=== PATIENT | female | born 1960 | race Caucasian/White ===

== ENCOUNTER → 2016-07-25 | Outpatient (CLI) | payer OTHER ==
[2016-07-25 08:15] LABS: Basophils # (A) 0.1 k/uL (0-0.2); Basophils % (A) 1 %; CH 29.1; CHCM 32.3; Eosinophils # (A) 0.1 k/uL (0-0.7); Eosinophils % (A) 1 %; HCT 44.6 % (34.0-46.0); HDW 2.26; HGB 14.1 gm/dL (11.4-16.0); Luc # (Auto) 0.21; Luc % (Auto) 2; Lymphocytes % (A) 29 %; MCH 28.5 pg (25.0-35.0); MCHC 31.5 g/dL (31.0-37.0); MCV 90.3 fL (80.0-100.0); Mean Platelet Volume 6.5; Monocytes # (A) 0.5 k/uL (0-1.0); Monocytes % (A) 5 %; Neutrophils # (A) 6.7 k/uL (1.3-7.7); Neutrophils % (A) 63 %; RBC 4.94 m/uL (3.80-5.40); RDW 12.9 % (11.5-15.5); WBC 10.6 k/uL (3.8-10.6); WBC (Perox) 10.87
[2016-07-25 09:09] LABS: ALT 35 U/L (9-52); AST 25 U/L (14-36); Alkaline Phosphatase 80 U/L (38-126); Anion Gap 10 mmol/L; Blood Urea Nitrogen 16 mg/dL (7-17); C Reactive Protein 7.5 mg/L (<10.0); Calcium 9.5 mg/dL (8.4-10.2); Carbon Dioxide 29 mmol/L (22-30); Chloride 105 mmol/L (98-107); Cholesterol 169 mg/dL (<200); Creatine Kinase 74 U/L (30-135); Glucose 113 mg/dL (74-99); HDL Cholesterol 61 mg/dL (40-60); Non-African American GFR(MDRD) >60 (>60 ml/min/1.73 sqM); Potassium 4.3 mmol/L (3.5-5.1); Sodium 144 mmol/L (137-145); Total Bilirubin 0.9 mg/dL (0.2-1.3); Total Protein 7.1 g/dL (6.3-8.2); Triglycerides 137 mg/dL (<150)
[2016-07-25 09:37] LABS: Erythrocyte Sedimentation Rate 20 mm/hr (0-20)
== END | disposition home or self-care (01) ==
LOC: LABWHC1 07:30
PROVIDERS: ATTEND Internal Medicine
DX: J44.9 Chronic obstructive pulmonary disease, unspecified (principal); N18.3 Chronic kidney disease, stage 3 (moderate); E78.5 Hyperlipidemia, unspecified; E55.9 Vitamin D deficiency, unspecified; M54.2 Cervicalgia; G54.2 Cervical root disorders, not elsewhere classified
CPT/HCPCS: 36415; 80053; 80061; 82306; 82550; 85025; 85652; 86140

== ENCOUNTER → 2016-08-25 | Outpatient (CLI) | payer OTHER ==
--- NOTE | 2016-08-26 09:30 | MM ---
Reason for exam: screening (asymptomatic). Last mammogram was performed 1 year and 4 months ago. History: Patient is postmenopausal. Family history of breast cancer in aunt. Physical Findings: A clinical breast exam by your physician is recommended on an annual basis and results should be correlated with mammographic findings. MG Screening Mammo w CAD Bilateral CC and MLO view(s) were taken. Prior study comparison: May 09, 2015, bilateral MG 3d screening mammo w/cad. February 10, 2014, bilateral MG screening mammo w CAD. Finding: There is an equal density (isodense), irregular mass in the upper quadrant, central position of the right breast. ASSESSMENT: Incomplete: need additional imaging evaluation, BI-RAD 0 RECOMMENDATION: Special view mammogram of the right breast. If lesion persists on supplemental views, image directed ultrasound is recommended. [facility] will attempt to contact patient to return for supplemental views and ultrasound if indicated.
== END | disposition home or self-care (01) ==
LOC: RADMAMWWP 13:19
PROVIDERS: ATTEND Internal Medicine
DX: Z12.31 Encounter for screening mammogram for malignant neoplasm of breast (principal); R92.8 Other abnormal and inconclusive findings on diagnostic imaging of breast

== ENCOUNTER → 2016-08-29 | Outpatient (CLI) | payer OTHER ==
--- NOTE | 2016-09-01 09:37 | MM ---
Reason for exam: additional evaluation requested from abnormal screening. Last mammogram was performed less than 1 month ago. History: Patient is postmenopausal. Family history of breast cancer in aunt. Physical Findings: Nurse did not find any significant physical abnormalities on exam. MG Work Up Mamm w CAD RT MLO with magnification and CC with magnification view(s) were taken of the right breast. Prior study comparison: August 25, 2016, bilateral MG screening mammo w CAD. May 09, 2015, bilateral MG 3d screening mammo w/cad. There are scattered fibroglandular densities. These results were verbally communicated with the patient and result sheet given to the patient on 08/29/16. ASSESSMENT: Probably benign, BI-RAD 3 RECOMMENDATION: Follow-up diagnostic mammogram of the right breast in 6 months.
== END | disposition home or self-care (01) ==
LOC: RADMAMWWP 12:45
PROVIDERS: ATTEND Internal Medicine
DX: R92.8 Other abnormal and inconclusive findings on diagnostic imaging of breast (principal); Z80.3 Family history of malignant neoplasm of breast; Z78.0 Asymptomatic menopausal state

== ENCOUNTER → 2017-02-26 | Outpatient (CLI) | payer OTHER ==
[2017-02-26 15:35] LABS: Basophils % (A) 0 %; CH 29.2; CHCM 32.8; Eosinophils # (A) 0.1 k/uL (0-0.7); Eosinophils % (A) 1 %; HDW 2.17; HGB 13.8 gm/dL (11.4-16.0); Luc # (Auto) 0.11; Luc % (Auto) 1; Lymphocytes % (A) 22 %; MCH 29.4 pg (25.0-35.0); MCHC 32.8 g/dL (31.0-37.0); MCV 89.4 fL (80.0-100.0); Monocytes # (A) 0.5 k/uL (0-1.0); Monocytes % (A) 6 %; Neutrophils # (A) 6.5 k/uL (1.3-7.7); Neutrophils % (A) 70 %; RDW 13.6 % (11.5-15.5); WBC 9.2 k/uL (3.8-10.6); WBC (Perox) 9.55
[2017-02-26 15:51] LABS: Anion Gap 10 mmol/L; Blood Urea Nitrogen 13 mg/dL (7-17); C Reactive Protein 12.2 mg/L (<10.0); Calcium 9.8 mg/dL (8.4-10.2); Carbon Dioxide 27 mmol/L (22-30); Chloride 102 mmol/L (98-107); Creatine Kinase 63 U/L (30-135); Glucose 82 mg/dL (74-99); Magnesium 1.9 mg/dL (1.6-2.3); Non-African American GFR(MDRD) >60 (>60 ml/min/1.73 sqM); Sodium 139 mmol/L (137-145)
[2017-02-26 16:21] LABS: Erythrocyte Sedimentation Rate 20 mm/hr (0-20)
== END | disposition home or self-care (01) ==
LOC: LABWHC1 14:49
PROVIDERS: ATTEND Internal Medicine
DX: E87.8 Other disorders of electrolyte and fluid balance, not elsewhere classified (principal); E03.9 Hypothyroidism, unspecified; M79.7 Fibromyalgia
CPT/HCPCS: 36415; 80048; 82550; 83735; 84443; 85025; 85652; 86140

== ENCOUNTER → 2017-03-03 | Outpatient (CLI) | payer OTHER ==
--- NOTE | 2017-03-03 14:14 | MM ---
Reason for exam: follow-up at short interval from prior study. Last mammogram was performed 6 months ago. History: Patient is postmenopausal. Family history of breast cancer in aunt. Took estrogen for 6 months beginning at age 38. Took progesterone for 6 months beginning at age 38. Physical Findings: Nurse did not find any significant physical abnormalities on exam. MG Diagnostic Mammo RT w CAD CC, MLO, and spot compression MLO view(s) were taken of the right breast. Prior study comparison: August 29, 2016, right breast MG work up mamm w CAD RT. August 25, 2016, bilateral MG screening mammo w CAD. There are scattered fibroglandular densities. No significant new findings when compared with previous films. These results were verbally communicated with the patient and result sheet given to the patient on 03/03/17. ASSESSMENT: Benign, BI-RAD 2 RECOMMENDATION: Return to routine screening mammogram schedule for both breasts. Back on schedule.
== END | disposition home or self-care (01) ==
LOC: RADMAMWWP 13:29
PROVIDERS: ATTEND Internal Medicine
DX: R92.8 Other abnormal and inconclusive findings on diagnostic imaging of breast (principal)

== ENCOUNTER → 2017-06-05 | Outpatient (CLI) | payer OTHER ==
[2017-06-05 17:49] LABS: Anion Gap 12 mmol/L; Blood Urea Nitrogen 16 mg/dL (7-17); Calcium 9.6 mg/dL (8.4-10.2); Carbon Dioxide 28 mmol/L (22-30); Chloride 103 mmol/L (98-107); Glucose 106 mg/dL (74-99); Phosphorus 3.9 mg/dL (2.5-4.5); Potassium 3.8 mmol/L (3.5-5.1); Sodium 143 mmol/L (137-145)
--- NOTE | 2017-06-05 17:55 | XR ---
EXAMINATION TYPE: XR chest 2V DATE OF EXAM: 06/05/2017 COMPARISON: NONE HISTORY: Short of breath TECHNIQUE: Frontal and lateral views of the chest are obtained. FINDINGS: There is no heart failure nor confluent pneumonic infiltrate. Costophrenic angles are yandy r. Bony thorax is intact. There is mild hyperlucency of the right upper lobe. IMPRESSION: No active cardiopulmonary disease. Normal heart. There is probably emphysema.
== END | disposition home or self-care (01) ==
LOC: LABWHC1 17:11
PROVIDERS: ATTEND Internal Medicine
DX: E87.8 Other disorders of electrolyte and fluid balance, not elsewhere classified (principal); K21.9 Gastro-esophageal reflux disease without esophagitis; Z87.891 Personal history of nicotine dependence
CPT/HCPCS: 36415; 71046; 80048; 83735; 84100

== ENCOUNTER → 2017-09-24 | Outpatient (CLI) | payer OTHER ==
[2017-09-24 09:54] LABS: Basophils % (A) 0 %; Eosinophils # (A) 0.1 k/uL (0-0.7); Eosinophils % (A) 2 %; HCT 45.9 % (34.0-46.0); HGB 14.5 gm/dL (11.4-16.0); Lymphocytes # (A) 2.1 k/uL (1.0-4.8); Lymphocytes % (A) 38 %; MCH 26.7 pg (25.0-35.0); MCHC 31.6 g/dL (31.0-37.0); MCV 84.4 fL (80.0-100.0); Mean Platelet Volume 6.9; Monocytes # (A) 0.3 k/uL (0-1.0); Monocytes % (A) 5 %; Neutrophils % (A) 54 %; Platelet Count 279 k/uL (150-450); RBC 5.44 m/uL (3.80-5.40); RDW 13.3 % (11.5-15.5); WBC 5.6 k/uL (3.8-10.6)
[2017-09-24 10:04] LABS: ALT 33 U/L (9-52); AST 27 U/L (14-36); Albumin 4.3 g/dL (3.5-5.0); Alkaline Phosphatase 84 U/L (38-126); Anion Gap 13 mmol/L; Blood Urea Nitrogen 11 mg/dL (7-17); C Reactive Protein 5.4 mg/L (<10.0); Calcium 9.7 mg/dL (8.4-10.2); Carbon Dioxide 30 mmol/L (22-30); Chloride 104 mmol/L (98-107); Cholesterol 179 mg/dL (<200); Creatine Kinase 48 U/L (30-135); Glucose 120 mg/dL (74-99); HDL Cholesterol 51 mg/dL (40-60); LDL Cholesterol,Calculated 65 mg/dL (0-99); Magnesium 2.1 mg/dL (1.6-2.3); Phosphorus 3.7 mg/dL (2.5-4.5); Potassium 3.8 mmol/L (3.5-5.1); Sodium 147 mmol/L (137-145); Total Bilirubin 0.4 mg/dL (0.2-1.3); Total Protein 7.4 g/dL (6.3-8.2); Triglycerides 316 mg/dL (<150)
[2017-09-24 11:14] LABS: Erythrocyte Sedimentation Rate 19 mm/hr (0-20)
[2017-09-24 16:49] LABS: Vitamin D 25 Hydroxy 39.9 ng/mL (30.0-100.0)
[2017-09-24 17:11] LABS: Folate, Serum >24.0 ng/mL
[2017-09-24 18:51] LABS: Hemoglobin A1C 5.8 % (4.0-6.0)
== END | disposition home or self-care (01) ==
LOC: LABWHC1 09:04
PROVIDERS: ATTEND Internal Medicine
DX: K05.00 Acute gingivitis, plaque induced (principal); J44.9 Chronic obstructive pulmonary disease, unspecified; E78.5 Hyperlipidemia, unspecified; I10 Essential (primary) hypertension; E55.9 Vitamin D deficiency, unspecified
CPT/HCPCS: 36415; 80053; 80061; 82306; 82550; 82607; 82746; 83036; 83735; 84100; 84443; 85025; 85652; 86140

== ENCOUNTER 2018-02-19 11:24 | Emergency (ER) | payer OTHER ==
[2018-02-19] MEDS ORDERED: SODIUM CHLORIDE 0.9% 1,000 ML IV STA (13:32)
[2018-02-19] MEDS ORDERED: KETOROLAC 30 MG/ML 1 ML VIAL IVP STA (13:32)
[2018-02-19] MEDS ORDERED: ONDANSETRON 4 MG/2 ML VIAL IVP STA (13:33)
--- NOTE | 2018-02-19 13:35 | ED ---
General Adult HPI - General Chief complaint: Back Pain/Injury Stated complaint: Side Pain Source: patient Mode of arrival: ambulatory Limitations: no limitations - History of Present Illness Initial comments: Dictation was produced using [email or web address] dictation software. please excuse any grammatical, word or spelling errors. Chief Complaint: 57-year-old female past medical history of depression and hypertension presents with right-sided flank pain, nausea and vomiting. History of Present Illness: 57-year-old female presents with flank pain, nausea and vomiting. She states the symptoms have been ongoing for a couple days now. Patient's history is of musculoskeletal back pain. She states this episode is different from what she normally had in the past. Denies any changes in her urine. Patient has been feeling nauseous. She states that the pain as sharp and worse with movement. Denies any constitutional symptoms. The ROS documented in this emergency department record has been reviewed and confirmed by me. Those systems with pertinent positive or negative responses have been documented in the HPI. All other systems are other negative and/or noncontributory. - Related Data Home Medications Medication Instructions Recorded Confirmed Calcium Carbonate/Vitamin D3 1 tab PO BID 11/08/13 02/19/18 [Caltrate 600 + D Tablet] Multivitamins, Thera [Multivitamin] 1 tab PO DAILY 11/08/13 02/19/18 Naproxen Sodium [Aleve] 440 mg PO Q12HR PRN 02/19/18 02/19/18 [place]-3 Fatty Acids/Fish Oil [Fish 1 cap PO HS 02/19/18 02/19/18 Oil 1,000 mg Softgel] amLODIPine [Norvasc] 5 mg PO HS 02/19/18 02/19/18 traZODone HCL [Desyrel] 100 mg PO HS 02/19/18 02/19/18 Previous Rx's Medication Instructions Recorded Cyclobenzaprine [Flexeril] 5 mg PO TID PRN #18 tablet 02/19/18 Allergies Allergy/AdvReac Type Severity Reaction Status Date / Time Sulfa (Sulfonamide Allergy Unknown Verified 02/19/18 15:33 Antibiotics) Review of Systems ROS Statement: Those systems with pertinent positive or pertinent negative responses have been documented in the HPI. ROS Other: All systems not noted in ROS Statement are negative. Past Medical History Past Medical History: No Reported History History of Any Multi-Drug Resistant Organisms: None Reported Past Surgical History: Appendectomy, Hysterectomy Past Psychological History: No Psychological Hx Reported Smoking Status: Current every day smoker Past Alcohol Use History: Rare Past Drug Use History: None Reported General Exam - General Exam Comments Initial Comments: PHYSICAL EXAM: General Impression: Alert and oriented x3, not in acute distress HEENT: Normocephalic atraumatic, extra-ocular movements intact, pupils equal and reactive to light bilaterally, mucous membranes moist. Cardiovascular: Heart regular rate and rhythm, S1&S2 audible, no murmurs, rubs or gallops Chest: Lungs clear to auscultation bilaterally, no rhonchi, no wheeze, no rales Abdomen: Bowel sounds present, abdomen soft, non-tender, non-distended, no organomegaly Musculoskeletal: Pulses present and equal in all extremities, no peripheral edema Motor: Power 5/5 bilaterally, no focal deficits noted Neurological: CN II-XII grossly intact, no focal motor or sensory deficits noted Skin: Intact with no visualized rashes Psych: Normal affect and mood Limitations: no limitations Course Vital Signs 02/19/18 12:12 Temperature 98.4 F Pulse Rate 88 Respiratory 18 Rate Blood Pressure 179/82 O2 Sat by Pulse 96 Oximetry Medical Decision Making - Medical Decision Making ED course: 57-year-old female with chief complaint of right-sided back pain with associated nausea and vomiting. Vital signs upon arrival shows blood pressure 179/82, rest of vital signs within normal limits. Clinical presentation is suspicious for musculoskeletal back pain versus nephrolithiasis.Laboratory evaluation shows leukocytosis of 11.5, rest of CBC unremarkable. Metabolic panel is unremarkable, urinalysis is negative. CT of the abdomen and pelvis was obtained showing no acute processes. There are 1-2 mm calculi in the right kidney midpole. There is no signs of hydronephrosis. Patient's symptoms likely secondary to default lithiasis however not ureterolithiasis. Patient notified of these results. Patient given prescription for Flexeril. - Lab Data Result diagrams: 02/19/18 12:58 02/19/18 12:58 Lab Results 02/19/18 02/19/18 02/19/18 Range/Units 12:58 12:58 14:00 WBC 11.5 H (3.8-10.6) k/uL RBC 4.99 (3.80-5.40) m/uL Hgb 14.0 (11.4-16.0) gm/dL Hct 42.4 (34.0-46.0) % MCV 84.9 (80.0-100.0) fL MCH 28.1 (25.0-35.0) pg MCHC 33.1 (31.0-37.0) g/dL RDW 13.5 (11.5-15.5) % Plt Count 351 (150-450) k/uL Neutrophils % 83 % Lymphocytes % 12 % Monocytes % 4 % Eosinophils % 1 % Basophils % 0 % Neutrophils # 9.5 H (1.3-7.7) k/uL Lymphocytes # 1.3 (1.0-4.8) k/uL Monocytes # 0.5 (0-1.0) k/uL Eosinophils # 0.1 (0-0.7) k/uL Basophils # 0.0 (0-0.2) k/uL Sodium 140 (137-145) mmol/L Potassium 4.1 (3.5-5.1) mmol/L Chloride 103 (98-107) mmol/L Carbon Dioxide 25 (22-30) mmol/L Anion Gap 12 mmol/L BUN 10 (7-17) mg/dL Creatinine 0.63 (0.52-1.04) mg/dL Est GFR (CKD-EPI)AfAm >90 (>60 ml/min/1.73 sqM) Est GFR (CKD-EPI)NonAf >90 (>60 ml/min/1.73 sqM) Glucose 125 H (74-99) mg/dL Calcium 9.8 (8.4-10.2) mg/dL Lipase 75 (23-300) U/L Urine Color Light Yellow Urine Appearance Clear (Clear) Urine pH 7.0 (5.0-8.0) Ur Specific [place] 1.007 (1.001-1.035) Urine Protein Negative (Negative) Urine Glucose (UA) Negative (Negative) Urine Ketones Negative (Negative) Urine Blood Negative (Negative) Urine Nitrite Negative (Negative) Urine Bilirubin Negative (Negative) Urine Urobilinogen <2.0 (<2.0) mg/dL Ur Leukocyte Esterase Negative (Negative) Disposition Clinical Impression: Nephrolithiasis Disposition: HOME SELF-CARE Instructions: Kidney Stones (ED) Prescriptions: Cyclobenzaprine [Flexeril] 5 mg PO TID PRN #18 tablet PRN Reason: Pain Is patient prescribed a controlled substance at d/c from ED?: No Referrals: Ang Raymundo MD [Primary Care Provider] - 1-2 days Time of Disposition: 16:10
[2018-02-19 13:55] LABS: Basophils % (A) 0 %; Eosinophils # (A) 0.1 k/uL (0-0.7); Eosinophils % (A) 1 %; HCT 42.4 % (34.0-46.0); Lymphocytes # (A) 1.3 k/uL (1.0-4.8); Lymphocytes % (A) 12 %; MCH 28.1 pg (25.0-35.0); MCHC 33.1 g/dL (31.0-37.0); MCV 84.9 fL (80.0-100.0); Mean Platelet Volume 7.4; Monocytes # (A) 0.5 k/uL (0-1.0); Monocytes % (A) 4 %; Neutrophils # (A) 9.5 k/uL (1.3-7.7); Neutrophils % (A) 83 %; Platelet Count 351 k/uL (150-450); RBC 4.99 m/uL (3.80-5.40); RDW 13.5 % (11.5-15.5); WBC 11.5 k/uL (3.8-10.6)
[2018-02-19 14:06] LABS: Anion Gap 12 mmol/L; Blood Urea Nitrogen 10 mg/dL (7-17); Calcium 9.8 mg/dL (8.4-10.2); Carbon Dioxide 25 mmol/L (22-30); Chloride 103 mmol/L (98-107); Glucose 125 mg/dL (74-99); Lipase 75 U/L (23-300); Potassium 4.1 mmol/L (3.5-5.1); Sodium 140 mmol/L (137-145)
[2018-02-19 14:42] LABS: Appearance,Urine Clear (Clear); Bilirubin,Urine Negative (Negative); Blood,Urine Negative (Negative); Color,Urine Light Yellow; Glucose,Urine (UA) Negative (Negative); Ketones,Urine Negative (Negative); Leukocyte Esterase,Urine Negative (Negative); Nitrite,Urine Negative (Negative); Protein,Urine Negative (Negative); Specific Gravity,Urine 1.007 (1.001-1.035); Urobilinogen,Urine <2.0 mg/dL (<2.0)
--- NOTE | 2018-02-19 15:28 | CT ---
EXAMINATION TYPE: CT abdomen pelvis wo con DATE OF EXAM: 02/19/2018 HISTORY: pain not further specified. CT DLP: 805 mGycm. Automated Exposure Control for Dose Reduction was Utilized. TECHNIQUE: CT scan of the abdomen and pelvis is performed without oral or IV contrast. COMPARISON: NONE FINDINGS: Within the limitations of a non-contrast study, the following observations are made. LUNG BASES: No significant abnormality is appreciated. LIVER/GB: No significant abnormality is appreciated. PANCREAS: No significant abnormality is seen. SPLEEN: No significant abnormality is seen. ADRENALS: Slight asymmetric thickening to left adrenal gland favors benign hyperplasia. KIDNEYS: There is single 1 to 2 mm calculus upper to mid pole level right kidney coronal image 51. Th ere is no hydronephrosis or obstructing ureter calculi clearly seen bilaterally. No intraluminal calc ulus in bladder is clearly identified. BOWEL: Evaluation bowel is suboptimal secondary to lack of enteric contrast. There is no suspicious s mall or large bowel dilatation. Sutures from appendectomy are seen at base of cecum. A few diverticul a are seen in the sigmoid colon. There is no CT evidence for acute diverticulitis. GENITAL ORGANS: Uterus is surgically absent or markedly atrophic. LYMPH NODES: No greater than 1cm abdominal or pelvic lymph nodes are appreciated. OSSEOUS STRUCTURES: Moderate axial joint space loss in both hips is present. OTHER: There is tiny fat-containing umbilical hernia. There is moderate calcified plaque of aorta ext ending into branch vessels. There is single surgical clip anteriorly in the lower abdomen axial image 83. IMPRESSION: No suspicious acute findings identified on noncontrast study. Suboptimal without more det silvia history.
[2018-02-19 16:36] VITALS: BP 147/65; PULSE 74; RESP 16; TEMP 98
== END 2018-02-19 16:36 | disposition home or self-care (01) ==
LOC: EC 11:24
DX: N20.0 Calculus of kidney (principal); I10 Essential (primary) hypertension; F32.9 Major depressive disorder, single episode, unspecified; F17.200 Nicotine dependence, unspecified, uncomplicated; Z79.899 Other long term (current) drug therapy; Z88.2 Allergy status to sulfonamides; Z90.89 Acquired absence of other organs; Z90.710 Acquired absence of both cervix and uterus
CPT/HCPCS: 36415; 80048; 83690; 85025; 81003; 87086; 74176; 99284; 96374; 96375; 96361; J2405; J1885

== ENCOUNTER → 2018-09-18 | Outpatient (CLI) | payer OTHER ==
[2018-09-18 15:56] LABS: Basophils % (A) 1 %; Eosinophils # (A) 0.1 k/uL (0-0.7); Eosinophils % (A) 2 %; HCT 44.1 % (34.0-46.0); HGB 13.7 gm/dL (11.4-16.0); Lymphocytes # (A) 2.3 k/uL (1.0-4.8); Lymphocytes % (A) 42 %; MCH 27.1 pg (25.0-35.0); MCV 87.4 fL (80.0-100.0); Mean Platelet Volume 6.3; Monocytes # (A) 0.4 k/uL (0-1.0); Monocytes % (A) 6 %; Neutrophils # (A) 2.5 k/uL (1.3-7.7); Neutrophils % (A) 45 %; Platelet Count 328 k/uL (150-450); RBC 5.05 m/uL (3.80-5.40); RDW 13.3 % (11.5-15.5); WBC 5.6 k/uL (3.8-10.6)
[2018-09-18 16:38] LABS: Erythrocyte Sedimentation Rate 19 mm/hr (0-20)
[2018-09-18 22:14] LABS: Albumin 4.3 g/dL (3.80-4.90); Albumin/Globulin Ratio 1.95 (1.60-3.17); Anion Gap 4.4 mmol/L (4.00-12.00); Calcium 9.3 mg/dL (8.7-10.3); Carbon Dioxide 32.6 mmol/L (21.6-31.8); Globulin 2.2 g/dL (1.6-3.3); LDL Cholesterol,Calculated 119.2 mg/dL (0.0-131.0); Potassium 4.6 mmol/L (3.5-5.5); Total Bilirubin 0.6 mg/dL (0.2-1.2); Total Protein 6.5 g/dL (6.2-8.2); VLDL Calculation 24.8 mg/dL (5.00-40.00)
== END ==
LOC: LABMAIN 14:52
PROVIDERS: ATTEND Internal Medicine
DX: E78.5 Hyperlipidemia, unspecified (principal); D64.9 Anemia, unspecified; E87.8 Other disorders of electrolyte and fluid balance, not elsewhere classified; E55.9 Vitamin D deficiency, unspecified
CPT/HCPCS: 36415; 80053; 80061; 82306; 82550; 85025; 85652

== ENCOUNTER 2019-01-18 12:58 | Emergency (ER) | payer OTHER ==
[2019-01-18 13:09] VITALS: BP 176/86; PULSE 81; RESP 18; TEMP 97.7
--- NOTE | 2019-01-18 13:33 | XR ---
Right knee HISTORY: Pain 3 views of the right knee Bone mineralization, joint spaces and alignment are maintained. Suprapatellar increased density is pr esent. No fracture or dislocation. IMPRESSION: Suprapatellar joint effusion.
--- NOTE | 2019-01-18 13:49 | ED ---
Lower Extremity Injury HPI - General Chief Complaint: Extremity Injury, Lower Stated Complaint: Knee injury-[facility] Time Seen by Provider: 01/18/19 13:09 Source: patient Mode of arrival: wheelchair Limitations: no limitations - History of Present Illness Initial Comments: 58-year-old female presented for chief complaint of right knee. Right foot pain. Patient states that this morning at 11:30 AM she tripped while at work. She states she had her anterior knee except her right great toe. Patient states she has pain in these areas. Patient states she is able to ambulate extended the leg. Patient states the pain is anterior denies dislocation denies numbness tingling or loss sensation. Remainder review systems negative. Patient denies any injuries upper extremities had injury loss of consciousness or injury to the neck or back. Patient appears well upon arrival ambulatory. - Related Data Home Medications Medication Instructions Recorded Confirmed Calcium Carbonate/Vitamin D3 1 tab PO BID 11/08/13 02/19/18 [Caltrate 600 + D Tablet] Multivitamins, Thera [Multivitamin] 1 tab PO DAILY 11/08/13 02/19/18 Naproxen Sodium [Aleve] 440 mg PO Q12HR PRN 02/19/18 02/19/18 [place]-3 Fatty Acids/Fish Oil [Fish 1 cap PO HS 02/19/18 02/19/18 Oil 1,000 mg Softgel] amLODIPine [Norvasc] 5 mg PO HS 02/19/18 02/19/18 traZODone HCL [Desyrel] 100 mg PO HS 02/19/18 02/19/18 Previous Rx's Medication Instructions Recorded Cyclobenzaprine [Flexeril] 5 mg PO TID PRN #18 tablet 02/19/18 Allergies Allergy/AdvReac Type Severity Reaction Status Date / Time Sulfa (Sulfonamide Allergy Unknown Verified 01/18/19 13:09 Antibiotics) Review of Systems ROS Statement: Those systems with pertinent positive or pertinent negative responses have been documented in the HPI. ROS Other: All systems not noted in ROS Statement are negative. Past Medical History Past Medical History: No Reported History History of Any Multi-Drug Resistant Organisms: None Reported Past Surgical History: Appendectomy, Hysterectomy Past Psychological History: No Psychological Hx Reported Smoking Status: Former smoker Past Alcohol Use History: Occasional Past Drug Use History: Marijuana General Exam - General Exam Comments Initial Comments: General: The patient is awake and alert, in no distress, and does not appear acutely ill. Eye: +3 mm pupils are equal, round and reactive to light, extra-ocular movements are intact. No nystagmus. There is normal conjunctiva bilaterally. No signs of icterus. Ears, nose, mouth and throat: There are moist mucous membranes and no oral lesions. Nontender to palpation of the cervical spine. Neck: The neck is supple, there is no tenderness or JVD. Cardiovascular: There is a regular rate and rhythm. No murmur, rub or gallop is appreciated. Respiratory: Lungs are clear to auscultation, respirations are non-labored, breath sounds are equal. No wheezes, stridor, rales, or rhonchi. Gastrointestinal: [Soft, non-distended, non-tender abdomen without masses or organomegaly noted. There is no rebound or guarding present. No CVA tenderness. Bowel sounds are unremarkable.] Musculoskeletal: Upon inspection of the bilaterally there is bruising the plantar aspect of the right foot. Patient does not have point localized tenderness over the midfoot however is tender to palpation over the length of th e right great toe. No bruising over the toe. No gross deformity. Patient has no abnormal findings upon inspection of knees bilaterally no bruising abrasions or lacerations. Patient is able to fully extend and flex at the knee without difficulty. However does complain of discomfort at the right knee. Strength 5/5. Sensation intact proximal and distal to injury site. Radial and PD Pulses equal bilaterally 2+. Neurological: A&O x 3. CN II-XII intact grossly, There are no obvious motor or sensory deficits. Coordination appears grossly intact. Speech is normal. Skin: Skin is warm and dry and no rashes or lesions are noted. Psychiatric: Cooperative, appropriate mood & affect, normal judgment. Limitations: no limitations Course Vital Signs 01/18/19 13:06 Temperature 97.7 F Pulse Rate 81 Respiratory 18 Rate Blood Pressure 176/86 O2 Sat by Pulse 97 Oximetry Medical Decision Making - Medical Decision Making 58-year-old female presenting for right foot right knee pain. Patient neurovascularly intact. Extensor mechanism intact. Imaging studies reveal no acute osseous process. Patient does have bruising on the plantar aspect of her foot there is no overt signs of Lisfranc injury on imaging studies. No specific point localized pain in this area however given the bruising patient is placed and a preprinted posterior splint she is given nonweightbearing instructions. Patient states she does not wnat a prescription for crutches and has a walker home which she will utilize to prevent weightbearing. I discussed the importance of orthopedic surgery follow-up. Patient verbalized understanding. Patient is neurovascularly intact both prior to and after applying splint. Discussed the case maintained by Dr. Glavez reviewed imaging studies together. At this time patient still for discharge she verbalizes understanding of return parameters. Disposition Clinical Impression: Right knee pain, Right knee injury, Fall, Traumatic ecchymosis of right knee Disposition: HOME SELF-CARE Condition: Good Instructions (If sedation given, give patient instructions): Knee Sprain (ED) Additional Instructions: Please use medication as discussed. Please follow-up with family doctor in the next 2 days. Please return to emergency room if the symptoms increase or worsen or for any other concerns. Is patient prescribed a controlled substance at d/c from ED?: No Referrals: Ang Raymundo MD [Primary Care Provider] - 1-2 days Time of Disposition: 14:15
[2019-01-18] MEDS ORDERED: ACET/COD 300 MG/30 MG STARTER PACK 6 TAB BTL PO STA (14:15)
== END 2019-01-18 14:34 | disposition home or self-care (01) ==
LOC: EC 12:58
DX: S80.01XA Contusion of right knee, initial encounter (principal); Z79.899 Other long term (current) drug therapy; Z87.891 Personal history of nicotine dependence; Z88.2 Allergy status to sulfonamides; W01.0XXA Fall on same level from slipping, tripping and stumbling without subsequent striking against object, initial encounter; Y92.69 Other specified industrial and construction area as the place of occurrence of the external cause; Y99.0 Civilian activity done for income or pay
CPT/HCPCS: 29515; 99283

== ENCOUNTER → 2019-01-27 | Outpatient (CLI) | payer OTHER ==
--- NOTE | 2019-01-27 15:17 | XR ---
EXAMINATION TYPE: XR knee complete RT DATE OF EXAM: 01/27/2019 CLINICAL HISTORY: Contusion injury with pain. TECHNIQUE: Three views of the right knee are obtained. COMPARISON: None. FINDINGS: There is no acute fracture/dislocation evident in the right knee. Mild tricompartment join t space loss is redemonstrated. Persistent increased soft tissue density suprapatellar bursa suspicio us for moderate to large joint effusion. IMPRESSION: There is no acute fracture or dislocation in the right knee. No significant change from prior.
== END | disposition home or self-care (01) ==
LOC: RADXRMAIN 14:55
PROVIDERS: ATTEND Emergency Medicine
DX: S80.01XD Contusion of right knee, subsequent encounter (principal)

== ENCOUNTER → 2019-02-11 | Outpatient (CLI) | payer OTHER ==
--- NOTE | 2019-02-11 08:12 | MR ---
EXAMINATION TYPE: MR knee RT wo con DATE OF EXAM: 02/11/2019 COMPARISON: Right knee x-ray January 27, 2019 HISTORY: Contusion injury R knee with pain. Outer pain since tripping injury January 18 per patient TECHNIQUE: Multiplanar, multisequence images of the knee is performed without IV contrast. FINDINGS: MEDIAL MENISCUS: Anterior horn is intact without tear. Posterior horn shows horizontal increased sign al does not extend to articular surface. LATERAL MENISCUS: Anterior and posterior horns are intact without tear. CRUCIATE LIGAMENTS: The posterior cruciate ligament is intact and unremarkable. Anterior cruciate lig ament shows marked increased signal in spanning of fibers sagittal image 16 but remains intact COLLATERAL LIGAMENTS: The medial collateral ligament and lateral collateral ligament complex are inta ct and unremarkable. EXTENSOR MECHANISM: Visualized quadriceps and patellar tendons are intact. EFFUSION: There is moderate to large size suprapatellar joint effusion. POPLITEAL CYST: Tiny popliteal/fung cyst. TRICOMPARTMENT SPACES: Mild to moderate narrowing patellofemoral compartment. No significant spurring . Mild narrowing medial tibiofemoral compartment. CARTILAGE: Tricompartmental articular cartilage is fairly well preserved. BONE MARROW SIGNAL: Marked heterogeneous increased T2 signal involving the tibial plateau with focal area of low T1 signal sagittal image 20 and coronal image 11 consistent with nondisplaced intra-artic ular subchondral fracture along the lateral aspect of the tibial plateau. OTHER: No additional significant abnormality is appreciated. IMPRESSION: 1. Nondisplaced occult intra-articular incomplete fracture through the lateral aspect of the tibial p lateau with associated osseous contusion injury. No displaced fracture fragments identified. 2. Moderate to large suprapatellar joint effusion. 3. Partial rupture ACL, no full thickness ACL tear. 4. Probable intrasubstance tear posterior horn medial meniscus. No full-thickness meniscal tear. 5. Mild tricompartment degenerative changes. 6. Tiny popliteal cyst.
== END | disposition home or self-care (01) ==
LOC: RADMRIMAIN 06:36
PROVIDERS: ATTEND Emergency Medicine
DX: S82.144A Nondisplaced bicondylar fracture of right tibia, initial encounter for closed fracture (principal); S83.511A Sprain of anterior cruciate ligament of right knee, initial encounter; M17.11 Unilateral primary osteoarthritis, right knee

== ENCOUNTER → 2020-10-27 | Outpatient (CLI) | payer BC ==
[2020-10-27 11:35] LABS: Basophils # (A) 0.1 k/uL (0-0.2); Basophils % (A) 1 %; Eosinophils # (A) 0.2 k/uL (0-0.7); Eosinophils % (A) 3 %; HCT 42.1 % (34.0-46.0); HGB 13.8 gm/dL (11.4-16.0); Lymphocytes % (A) 31 %; MCH 27.9 pg (25.0-35.0); MCHC 32.9 g/dL (31.0-37.0); MCV 84.9 fL (80.0-100.0); Mean Platelet Volume 6.8; Monocytes # (A) 0.5 k/uL (0-1.0); Monocytes % (A) 7 %; Neutrophils # (A) 3.6 k/uL (1.3-7.7); Neutrophils % (A) 57 %; Platelet Count 388 k/uL (150-450); RBC 4.96 m/uL (3.80-5.40); RDW 13.1 % (11.5-15.5); WBC 6.4 k/uL (3.8-10.6)
[2020-10-27 11:47] LABS: ALT 24 U/L (4-34); AST 29 U/L (14-36); African American GFR (CKD) >90 (>60 ml/min/1.73 sqM); Albumin 4.1 g/dL (3.5-5.0); Alkaline Phosphatase 89 U/L (38-126); Anion Gap 6 mmol/L; Blood Urea Nitrogen 17 mg/dL (7-17); C Reactive Protein 0.9 mg/dL (<1.0); Calcium 9.2 mg/dL (8.4-10.2); Carbon Dioxide 26 mmol/L (22-30); Chloride 106 mmol/L (98-107); Creatine Kinase 116 U/L (30-135); Glucose 96 mg/dL (74-99); Magnesium 2.1 mg/dL (1.6-2.3); Non-African American GFR(CKD) >90 (>60 ml/min/1.73 sqM); Phosphorus 4.4 mg/dL (2.5-4.5); Potassium 5.1 mmol/L (3.5-5.1); Sodium 138 mmol/L (137-145); Total Bilirubin 0.4 mg/dL (0.2-1.3); Total Protein 7.2 g/dL (6.3-8.2)
[2020-10-27 12:50] LABS: Erythrocyte Sedimentation Rate 20 mm/hr (0-20)
[2020-10-27 16:30] LABS: Chol/HDL Ratio 3.05; Cholesterol 192 mg/dL (0-200)
--- NOTE | 2020-10-28 09:47 | XR ---
EXAMINATION TYPE: XR chest 2V DATE OF EXAM: 10/27/2020 COMPARISON: Chest x-ray 06/05/2017 HISTORY: Shortness of breath, physical exam TECHNIQUE: Frontal and lateral views of the chest are obtained. FINDINGS: There is no focal air space opacity, pleural effusion, or pneumothorax seen. The cardiac silhouette size is stable, heart is small. Prominent lung volumes, apical lucency may be indicative of underlying COPD, emphysema, some minimal strand-like basilar densities are again noted The osseous structures are intact. IMPRESSION: No acute cardiopulmonary process.
== END | disposition home or self-care (01) ==
LOC: RADXRMAIN 09:20
PROVIDERS: ATTEND Internal Medicine
DX: R06.02 Shortness of breath (principal)
CPT/HCPCS: 71046; 80053; 80061; 82306; 82550; 83735; 84100; 84443; 85025; 85652; 86140

== ENCOUNTER → 2020-11-29 | Outpatient (CLI) | payer BC | END | disposition home or self-care (01) | CPT/HCPCS: 77067 ==

== ENCOUNTER → 2021-07-18 | Outpatient (CLI) | payer BC ==
--- NOTE | 2021-07-18 13:07 | XR ---
EXAMINATION TYPE: XR Hip Complete RT DATE OF EXAM: 07/18/2021 COMPARISON: NONE HISTORY: Pain TECHNIQUE: 2 views submitted FINDINGS: There is no evidence of erosive change or acute fracture. Mild concentric narrowing of the joint space with hypertrophic change of the acetabulum IMPRESSION: 1. Arthropathy correlate for femoral acetabular impingement.
--- NOTE | 2021-07-18 13:10 | XR ---
EXAM TYPE: LUMBAR SPINE X RAY SERIES COMPARISON: NONE HISTORY: Pain TECHNIQUE: 4 views are submitted. FINDINGS: Alignment is anatomic. The pedicles are intact. The transverse processes are intact. There is no s pondylolysis or spondylolisthesis. Diffuse osteopenia curvature of the spine. Vascular calcifications are noted. There is degenerative disc disease at all levels with advanced facet arthropathy involvin g the lower lumbar spine. No compression deformities. IMPRESSION: 1. Diffuse osteopenia with multilevel degenerative disc disease and advanced facet arthropathy lower lumbar spine.
== END | disposition home or self-care (01) ==
LOC: RADXRMAIN 12:14
PROVIDERS: ATTEND Internal Medicine
DX: M51.36 Other intervertebral disc degeneration, lumbar region (principal); M47.816 Spondylosis without myelopathy or radiculopathy, lumbar region; M12.851 Other specific arthropathies, not elsewhere classified, right hip; M85.88 Other specified disorders of bone density and structure, other site
CPT/HCPCS: 72110; 73502

== ENCOUNTER → 2021-12-28 | Outpatient (CLI) | payer BC ==
[2021-12-28 11:20] LABS: Basophils # (A) 0.05 X 10*3/uL (0.00-0.10); Basophils % (A) 0.8 %; Eosinophils # (A) 0.05 X 10*3/uL (0.04-0.35); Eosinophils % (A) 0.8 %; HCT 42.8 % (37.2-46.3); HGB 12.9 g/dL (12.0-15.0); Immature Grans, Automated 0.3 %; Lymphocytes # (A) 1.82 X 10*3/uL (0.90-5.00); MCH 26.2 pg (27.0-32.0); MCHC 30.1 g/dL (32.0-37.0); MCV 86.8 fL (80.0-97.0); Mean Platelet Volume 9.5 fL (9.5-12.2); Monocytes # (A) 0.54 X 10*3/uL (0.20-1.00); Monocytes % (A) 8.6 %; NRBC Per 100 WBC 0 /100 WBCS (0.0-0.0); Neutrophils % (A) 60.5 %; Platelet Count 319 X 10*3/uL (140-440); RBC 4.93 X 10*6/uL (4.10-5.20); RDW 13.2 % (11.5-14.5); WBC 6.28 X 10*3/uL (4.50-10.00)
[2021-12-28 11:44] LABS: Erythrocyte Sedimentation Rate 9 mm/Hr (0-30)
[2021-12-28 11:46] LABS: Chol/HDL Ratio 2.89 Ratio; VLDL Calculation 15.64 mg/dL (5.00-40.00)
[2021-12-28 11:53] LABS: ALT 19 U/L (8-44); AST 20 U/L (13-35); African American GFR (CKD) 86.6 (60.0-200.0); Albumin 4.4 g/dL (3.8-4.9); Albumin/Globulin Ratio 1.81 (1.60-3.17); Alkaline Phosphatase 85 U/L (41-126); BUN/Creat Ratio 24.67 Ratio (12.00-20.00); Blood Urea Nitrogen 20.8 mg/dL (9.0-27.0); C Reactive Protein <0.30 mg/dL (0.00-0.80); Calcium 9.3 mg/dL (8.7-10.3); Carbon Dioxide 26.5 mmol/L (20.0-27.5); Chloride 102 mmol/L (96-109); Creatine Kinase 77 U/L (26-186); Globulin 2.4 g/dL (1.6-3.3); Glucose 100 mg/dL (70-110); Magnesium 2.3 mg/dL (1.5-2.4); Non-African American GFR(CKD) 74.7 (60.0-200.0); Phosphorus 4.5 mg/dL (2.4-5.1); Potassium 4.4 mmol/L (3.5-5.5); Sodium 141 mmol/L (135-145); Total Protein 6.8 g/dL (6.2-8.2)
== END | disposition home or self-care (01) ==
LOC: LABWHC1 08:15
PROVIDERS: ATTEND Internal Medicine
DX: Z00.00 Encounter for general adult medical examination without abnormal findings (principal); D64.9 Anemia, unspecified; I10 Essential (primary) hypertension; E78.5 Hyperlipidemia, unspecified; E55.9 Vitamin D deficiency, unspecified; E03.9 Hypothyroidism, unspecified
CPT/HCPCS: 36415; 80053; 80061; 82306; 82550; 83735; 84100; 84443; 85025; 85652; 86140

== ENCOUNTER → 2022-01-10 | Outpatient (CLI) | payer BC ==
--- NOTE | 2022-01-13 08:43 | MM ---
Reason for Exam: Screening (asymptomatic). Last mammogram was performed 1 year(s) and 1 month(s) ago. Patient History: Menarche at age 12. First Full-Term at age 25. Left ovary removed at age 38. Right ovary removed at age 38. Hysterectomy at age 38. Postmenopausal. Estrogen for 6 months from age 38 until age 38. Progesterone for 6 months from age 38 until age 38. Patient used Hormonal Contraceptives for 5 years. Maternal aunt had breast cancer. Risk Values: Deborah 5 year model risk: 1.6%. NCI Lifetime model risk: 7.9%. Prior Study Comparison: 08/29/2016 Right Diagnostic Mammogram, [facility]. 03/03/2017 Right Diagnostic Mammogram, [facility]. 11/29/2020 Bilateral Screening Mammogram, [facility]. Tissue Density: There are scattered fibroglandular densities. Findings: Analyzed By CAD. There is no suspicious group of microcalcifications or new suspicious mass in either breast. No significant change from prior exams. Overall Assessment: Benign, BI-RAD 2 Management: Screening Mammogram of both breasts in 1 year. A clinical breast exam by your physician is recommended on an annual basis and results should be correlated with mammographic findings. Electronically signed and approved by: Jax Fisher D.O.
== END | disposition home or self-care (01) ==
LOC: RADMAMWWP 13:38
PROVIDERS: ATTEND Internal Medicine
DX: Z12.31 Encounter for screening mammogram for malignant neoplasm of breast (principal); Z78.0 Asymptomatic menopausal state; Z80.3 Family history of malignant neoplasm of breast
CPT/HCPCS: 77067

== ENCOUNTER → 2023-01-03 | Outpatient (CLI) | payer BC ==
[2023-01-03 13:28] LABS: Basophils # (A) 0.04 X 10*3/uL (0.00-0.10); Basophils % (A) 0.7 %; Eosinophils # (A) 0.07 X 10*3/uL (0.04-0.35); Eosinophils % (A) 1.2 %; HGB 13.6 d/dL (12.0-15.0); Lymphocytes # (A) 1.52 X 10*3/uL (0.90-5.00); Lymphocytes % (A) 25.8 %; MCH 27.5 pg (27.0-32.0); MCHC 31.6 d/dL (32.0-37.0); Mean Platelet Volume 9.3 FL (9.5-12.2); Monocytes # (A) 0.69 X 10*3/uL (0.20-1.00); Monocytes % (A) 11.7 %; NRBC Per 100 WBC 0 X 10*3/uL (0.00-0.01); Neutrophils # (A) 3.55 X 10*3/uL (1.80-7.70); Neutrophils % (A) 60.3 %; Platelet Count 309 X 10*3/uL (140-440); RBC 4.94 X 10*6/uL (4.10-5.20); RDW 12.5 % (11.5-14.5); WBC 5.89 X 10*3/uL (4.50-10.00)
[2023-01-03 13:50] LABS: ALT 25 U/L (8-44); AST 22 U/L (13-35); Albumin 4.7 d/dL (3.8-4.9); Albumin/Globulin Ratio 1.96 Ratio (1.60-3.17); Alkaline Phosphatase 64 U/L (41-126); BUN/Creat Ratio 13.38 Ratio (12.00-20.00); Blood Urea Nitrogen 10.7 mg/dL (9.0-27.0); C Reactive Protein <0.30 mg/dL (0.00-0.80); Calcium 9.7 mg/dL (8.7-10.3); Carbon Dioxide 27.8 mmol/L (21.6-31.8); Chloride 103 mmol/L (96-109); Chol/HDL Ratio 3.61 Ratio; Creatine Kinase 104 U/L (26-186); Globulin 2.4 d/dL (1.6-3.3); Glucose 99 mg/dL (70-110); LDL Cholesterol,Calculated 119.1 mg/dL (0.0-131.0); Magnesium 2.3 mg/dL (1.5-2.4); Phosphorus 3.9 mg/dL (2.4-5.1); Potassium 4.9 mmol/L (3.5-5.5); Sodium 140 mmol/L (135-145); Total Bilirubin 0.7 mg/dL (0.3-1.2); Total Protein 7.1 d/dL (6.2-8.2)
[2023-01-03 14:15] LABS: Erythrocyte Sedimentation Rate 10 mm/Hr (0-30)
== END | disposition home or self-care (01) ==
LOC: LABWHC1 07:58
PROVIDERS: ATTEND Internal Medicine
DX: Z00.00 Encounter for general adult medical examination without abnormal findings (principal); I10 Essential (primary) hypertension; D64.9 Anemia, unspecified; E78.5 Hyperlipidemia, unspecified; E03.9 Hypothyroidism, unspecified; E55.9 Vitamin D deficiency, unspecified; M19.90 Unspecified osteoarthritis, unspecified site
CPT/HCPCS: 36415; 80053; 80061; 82306; 82550; 83735; 84100; 84443; 85025; 85652; 86140

== ENCOUNTER → 2023-01-14 | Outpatient (CLI) | payer BC ==
--- NOTE | 2023-01-14 13:11 | XR ---
EXAMINATION TYPE: XR chest 2V DATE OF EXAM: 01/14/2023 COMPARISON: 10/27/2020 TECHNIQUE: PA and lateral views submitted. HISTORY: Shortness of breath FINDINGS: The lungs are clear and there is no pneumothorax, pleural effusion, or focal pneumonia. Heart size normal and no overt failure. Osseous structures demonstrate hypertrophic and degenerative changes of the spine. Bilateral AC joint arthropathy. Diffuse hyperinflation. IMPRESSION: 1. No acute process. 2. Diffuse emphysematous changes similar to prior exam correlate for COPD.
--- NOTE | 2023-01-15 07:26 | MM ---
Reason for Exam: Screening (asymptomatic). Last screening mammogram was performed 12 month(s) ago. Patient History: Menarche at age 12. First Full-Term at age 25. Left ovary removed at age 38. Right ovary removed at age 38. Hysterectomy at age 38. Postmenopausal. Estrogen for 6 months from age 38 until age 38. Progesterone for 6 months from age 38 until age 38. Patient used Hormonal Contraceptives for 5 years. Maternal aunt had breast cancer. Risk Values: Deborah 5 year model risk: 1.7%. NCI Lifetime model risk: 7.7%. Prior Study Comparison: 03/03/2017 Right Diagnostic Mammogram, [facility]. 11/29/2020 Bilateral Screening Mammogram, [facility]. 01/10/2022 Bilateral MG screening mammo w CAD, [facility]. Tissue Density: There are scattered fibroglandular densities. Findings: Analyzed By CAD. There is no suspicious group of microcalcifications or new suspicious mass in either breast. Overall Assessment: Negative, BI-RAD 1 Management: Screening Mammogram of both breasts in [address] [facility] will attempt to contact patient to return for supplemental views and ultrasound if indicated. Patient should continue monthly self-breast exams. A clinical breast exam by your physician is recommended on an annual basis. This exam should not preclude additional follow-up of suspicious palpable abnormalities. Note on Deborah scores and lifetime risk: 1. A Deborah score greater than 3% is considered moderate risk. If this is the case, consider specialist referral to assess eligibility for a risk reducing agent. 2. If overall lifetime risk for the development of breast cancer is 20% or higher, the patient may qualify for future screening with alternating mammogram and breast MRI. Electronically signed and approved by: Tristen Donovan DO
== END | disposition home or self-care (01) ==
LOC: RADMAMWWP 12:32
PROVIDERS: ATTEND Internal Medicine
DX: Z12.31 Encounter for screening mammogram for malignant neoplasm of breast (principal); J43.9 Emphysema, unspecified; Z78.0 Asymptomatic menopausal state; Z80.3 Family history of malignant neoplasm of breast
CPT/HCPCS: 71046; 77067

== ENCOUNTER → 2024-01-08 | Outpatient (CLI) | payer BC ==
--- NOTE | 2024-02-15 12:51 | XR ---
Patient: Priti Marshall L Ordering Physician: Unknown, Unknown ID: [id number] Phone, Pager: Phone: N/A Pager: N/A : [phone] Age/Gender: 63Y, F Primary Location: N/A Procedure: XR chest 2V Study D ate: 01/08/2024 7:21:00 AM EXAMINATION TYPE: XR chest 2V DATE OF EXAM: 01/24/2024 11:44 AM CLINICAL INDICATION: Physical exam to severe COPD COMPARISON: Chest radiographs from 10/27/2020 01/14/2023 TECHNIQUE: XR chest 2V Frontal view of the chest. FINDINGS: Lungs/Pleura: There is flattening of the diaphragm with increased lucency of the lungs. No evidence o f pneumothorax, pleural effusion or focal consolidation. Pulmonary vascularity: Unremarkable. Heart/mediastinum: Cardiomediastinal silhouette is unremarkable. Musculoskeletal: No acute osseous pathology. IMPRESSION: 1. No acute cardiopulmonary disease process. 2. COPD changes.
== END | disposition home or self-care (01) ==
LOC: LABWHC1 06:55
PROVIDERS: ATTEND Internal Medicine
DX: Z00.00 Encounter for general adult medical examination without abnormal findings (principal); I10 Essential (primary) hypertension; J44.9 Chronic obstructive pulmonary disease, unspecified; E87.8 Other disorders of electrolyte and fluid balance, not elsewhere classified; E78.5 Hyperlipidemia, unspecified; E55.9 Vitamin D deficiency, unspecified; R06.02 Shortness of breath
CPT/HCPCS: 36415; 71046; 80053; 82272; 82306; 82550; 82728; 83540; 83550; 83735; 84100; 84443; 84550; 85025; 85652; 86140

== ENCOUNTER → 2024-02-12 | Outpatient (CLI) | payer BC ==
[2024-02-12 10:27] LABS: Chol/HDL Ratio 3.04 Ratio; LDL Cholesterol,Calculated 104.8 mg/dL (0.0-131.0)
== END | disposition home or self-care (01) ==
LOC: LABWHC1 06:56
PROVIDERS: ATTEND Internal Medicine
DX: E78.5 Hyperlipidemia, unspecified (principal)
CPT/HCPCS: 36415; 80061

== ENCOUNTER → 2024-02-17 | Outpatient (CLI) | payer BC ==
--- NOTE | 2024-02-17 12:59 | CTL ---
EXAMINATION TYPE: CT Low Dose Lung DATE OF EXAM ORDERED: 02/17/2024 HISTORY: 63-year-old female. Z12.2 LUNG CANCER SCREEN F17.210 FORMER SMOKER. Lung cancer screening. Former smoker with 38 pack-year history. CT DLP: [address] CTDI: 2.26 mGy Automated exposure control for dose reduction was used. SCREENING VISIT: Baseline COMPARISON: Radiograph dated 01/08/2024 TECHNIQUE: Low dose computed tomography scan was performed through the chest at 1 mm thick sections a nd reconstructed images in multiple planes at 1 mm and [address] DIAGNOSTIC QUALITY: Satisfactory FINDINGS: The heart is normal size without pericardial effusion. Three-vessel coronary artery calcifications ar e present. Minimal atherosclerotic arch calcifications with conventional arch vessel branching anatomy. No thoracic lymphadenopathy by CT size criteria. Moderate to advanced emphysema. Mild diffuse bronchial wall thickening. Some strandy atelectasis or s carring scattered throughout the anterior mid and lower lungs. Minimal biapical pleural parenchymal s carring. Tiny 2 mm pulmonary nodule lateral right upper lobe, axial image 122.. Tiny 2 mm pulmonary nodule lateral right midlung, axial image 162. Punctate 3 mm pulmonary nodule lateral left midlung, axial image 173. No consolidation or pleural effusion. Visualized upper abdomen shows ingested material within the stomach and splenic artery calcifications . Bones: Mild degenerative disc disease mid to lower thoracic spine. IMPRESSION: 1. LungRADS 2, benign. A few scattered punctate 3 mm and smaller pulmonary nodules on baseline screen ing. 2. 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 3. Three-vessel coronary artery calcifications. CT LUNG RAD AND CT CHEST RECOMMENDATION: Lung-Rad 2 Benign Appearance or Behavior: Continue annual sc reening with LDCT in 12 months. S Modifier (other clinically significant findings): None [facility], , 02/17/2024 12:56 PM
--- NOTE | 2024-02-22 11:31 | MM ---
Reason for Exam: Screening (asymptomatic). Last mammogram was performed 1 year(s) and 1 month(s) ago. Patient History: Menarche at age 12. First Full-Term at age 25. Left ovary removed at age 38. Right ovary removed at age 38. Hysterectomy at age 38. Postmenopausal. Estrogen for 6 months from age 38 until age 38. Progesterone for 6 months from age 38 until age 38. Patient used Hormonal Contraceptives for 5 years. Maternal aunt had breast cancer. Risk Values: Deborah 5 year model risk: 1.7%. NCI Lifetime model risk: 7.4%. Prior Study Comparison: 11/29/2020 Bilateral Screening Mammogram, [facility]. 01/10/2022 Bilateral MG screening mammo w CAD, [facility]. 01/14/2023 Bilateral MG screening mammo w CAD, [facility]. Tissue Density: There are scattered areas of fibroglandular density. Findings: Analyzed By CAD. The pattern is symmetrical. No significant interval change is evident. No suspicious groups of microcalcifications, spiculated or lobular masses, architectural distortion or other secondary signs of malignancy are mammographically apparent. Overall Assessment: Negative, BI-RAD 1 Management: Screening Mammogram of both breasts in 1 year. A negative mammogram report should not preclude additional follow up of suspicious palpable abnormalities. Patient should continue monthly self breast exam. A clinical breast exam by your physician is recommended on an annual basis and results should be correlated with mammographic findings. Note on Deborah scores and lifetime risk: 1. A Deborah score greater than 3% is considered moderate risk. If this is the case, consider specialist referral to assess eligibility for a risk reducing agent. 2. If overall lifetime risk for the development of breast cancer is 20% or higher, the patient may qualify for future screening with alternating mammogram and breast MRI. [facility], , 02/22/2024 11:29 AM. Electronically signed and approved by: Isaiah Pearson D.O. Radiologis
== END | disposition home or self-care (01) ==
LOC: RADCTMAIN 12:16
PROVIDERS: ATTEND Internal Medicine
DX: Z12.31 Encounter for screening mammogram for malignant neoplasm of breast (principal); Z12.2 Encounter for screening for malignant neoplasm of respiratory organs; R92.323 Mammographic fibroglandular density, bilateral breasts; F17.210 Nicotine dependence, cigarettes, uncomplicated; R91.8 Other nonspecific abnormal finding of lung field; Z78.0 Asymptomatic menopausal state; J43.9 Emphysema, unspecified; I25.10 Atherosclerotic heart disease of native coronary artery without angina pectoris; J44.9 Chronic obstructive pulmonary disease, unspecified; Z90.722 Acquired absence of ovaries, bilateral; Z80.3 Family history of malignant neoplasm of breast; Z92.0 Personal history of contraception
CPT/HCPCS: 71271; 77067

== ENCOUNTER 2024-10-20 11:01 | Emergency (ER) | payer BC ==
[2024-10-20 11:06] VITALS: RESP 18
[2024-10-20 11:36] LABS: Basophils # (A) 0.04 10*3/uL (0.00-0.10); Basophils % (A) 0.6 %; Eosinophils # (A) 0.04 10*3/uL (0.04-0.35); Eosinophils % (A) 0.6 %; HCT 39.1 % (37.2-46.3); HGB 12.9 g/dL (12.0-15.0); Lymphocytes # (A) 1.75 10*3/uL (0.90-5.00); Lymphocytes % (A) 25.8 %; MCH 27.4 pg (27.0-32.0); MCV 83.2 fL (80.0-97.0); Mean Platelet Volume 8.8 fL (9.5-12.2); Monocytes % (A) 7.4 %; Neutrophils # (A) 4.42 10*3/uL (1.80-7.70); Neutrophils % (A) 65.3 %; Platelet Count 277 10*3/uL (140-440); RDW 13.2 % (11.5-14.5); WBC 6.77 10*3/uL (4.50-10.00)
[2024-10-20 11:51] LABS: ALT 25 U/L (4-34); AST 27 U/L (14-36); African American GFR (CKD) 87 (>60 ml/min/1.73 sqM); Alkaline Phosphatase 67 U/L (38-126); Anion Gap 9 mmol/L; Blood Urea Nitrogen 13 mg/dL (7-17); Calcium 9.2 mg/dL (8.4-10.2); Carbon Dioxide 28 mmol/L (22-30); Chloride 98 mmol/L (98-107); Glucose 133 mg/dL (74-99); Magnesium 1.9 mg/dL (1.6-2.3); Non-African American GFR(CKD) 75 (>60 ml/min/1.73 sqM); Potassium 3.8 mmol/L (3.5-5.1); Sodium 135 mmol/L (137-145); Total Bilirubin 1.1 mg/dL (0.2-1.3)
--- NOTE | 2024-10-20 11:52 | XR ---
EXAMINATION TYPE: XR chest 2V DATE OF EXAM: 10/20/2024 11:36 AM COMPARISON: 01/08/2024 CLINICAL INDICATION: Female, 64 years old with history of Chest Pain, , TECHNIQUE: PA and lateral views FINDINGS: Heart normal size. Aorta and pulmonary vasculature within normal limits. Strandy atelectasis left bas e. Hyperinflation. No consolidation or pleural effusion otherwise seen. IMPRESSION: COPD. No definite acute process. [facility], Workstation: [facility], 10/20/2024 11:50 AM
--- NOTE | 2024-10-20 12:06 | ED ---
General Adult HPI - General Chief complaint: Chest Pain Stated complaint: Chest pressure,back pain Time Seen by Provider: 10/20/24 11:08 Source: patient, RN notes reviewed, old records reviewed Mode of arrival: ambulatory Limitations: no limitations - History of Present Illness Initial comments: 64-year-old female presenting for evaluation of chest discomfort that began this morning. Patient states this is right-sided and does go across her upper back. She has no prior history of CAD. She has a history of asthma COPD and reports a chronic cough which is unchanged. Mild chronic dyspnea. No lower extremity pain or swelling. No fever. - Related Data Home Medications Medication Instructions Recorded Confirmed Calcium Carbonate/Vitamin D3 1 tab PO BID 11/08/13 02/19/18 [Caltrate 600 + D Tablet] Multivitamins, Thera [Multivitamin] 1 tab PO DAILY 11/08/13 02/19/18 Naproxen Sodium [Aleve] 440 mg PO Q12HR PRN 02/19/18 02/19/18 [place]-3 Fatty Acids/Fish Oil [Fish 1 cap PO HS 02/19/18 02/19/18 Oil 1,000 mg Softgel] amLODIPine [Norvasc] 5 mg PO HS 02/19/18 02/19/18 traZODone HCL [Desyrel] 100 mg PO HS 02/19/18 02/19/18 Previous Rx's Medication Instructions Recorded Cyclobenzaprine [Flexeril] 5 mg PO TID PRN #18 tablet 02/19/18 Allergies Allergy/AdvReac Type Severity Reaction Status Date / Time Sulfa (Sulfonamide Allergy Unknown Verified 10/20/24 11:05 Antibiotics) Review of Systems ROS Statement: Those systems with pertinent positive or pertinent negative responses have been documented in the HPI. ROS Other: All systems not noted in ROS Statement are negative. Past Medical History Past Medical History: COPD, Hypertension Additional Past Medical History / Comment(s): emphysema History of Any Multi-Drug Resistant Organisms: None Reported Past Surgical History: Appendectomy, Hysterectomy Past Psychological History: No Psychological Hx Reported Smoking Status: Former smoker Past Alcohol Use History: Occasional Past Drug Use History: Marijuana General Exam Limitations: no limitations General appearance: alert, in no apparent distress Head exam: Present: atraumatic, normocephalic Eye exam: Present: normal appearance, PERRL Respiratory exam: Present: decreased breath sounds. Absent: respiratory distress, wheezes Cardiovascular Exam: Present: regular rate, normal rhythm GI/Abdominal exam: Present: soft. Absent: distended, tenderness Extremities exam: Present: normal inspection, normal capillary refill. Absent: pedal edema Neurological exam: Present: alert, oriented X3, CN II-XII intact. Absent: motor sensory deficit Psychiatric exam: Present: normal affect, normal mood Skin exam: Present: warm, dry, intact. Absent: cyanosis, diaphoretic Course Vital Signs 10/20/24 10/20/24 11:02 11:20 Temperature 97.4 F L Pulse Rate 93 Pulse Rate [ 80 Bracelet Former ] Respiratory 18 Rate Blood Pressure 143/64 O2 Sat by Pulse 92 L Oximetry Medical Decision Making - Medical Decision Making Was pt. sent in by a medical professional or institution ([facility], PARAMEDICAL AIDE, urgent care, hospital, or long-term...) When possible be specific @ -No Did you speak to anyone other than the patient for history (EMS, parent, family, police, friend...)? What history was obtained from this source @ -No Did you review nursing and triage notes (agree or disagree)? Why? @ -I reviewed and agree with nursing and triage notes Were old charts reviewed (outside hosp., previous admission, EMS record, old EKG, old radiological studies, urgent care reports/EKG's, long-term records)? Report findings @ -No old charts were reviewed Differential Chest Pain: Stable Angina, Unstable Angina, STEMI, NSTEMI Aortic Dissection, Pneumothorax, Musculoskeletal, Esophageal Spasm GERD, Cholecystitis, Pancreatitis, Zoster, this is not meant to be an all-inclusive list. EKG interpreted by me (3pts min.). @ -Sinus rhythm with PVC incomplete right bundle branch block, rate of 85, MT interval 181, QRS duration 106, QTc [address] segment elevation. X-rays interpreted by me (1pt min.). @Chest x-ray negative for acute cardiopulmonary finding CT interpreted by me (1pt min.). @ -None done U/S interpreted by me (1pt. min.). @ -None done What testing was considered but not performed or refused? (CT, X-rays, U/S, labs)? Why? @ -None What meds were considered but not given or refused? Why? @ -None Did you discuss the management of the patient with other professionals (professionals i.e. , PA, PARAMEDICAL AIDE, lab, RT, psych nurse, social welfare research worker, help desk manager, teacher, tank officer, briefcase sewer)? Give summary @ -No Was smoking cessation discussed for >3mins.? @ -No Was critical care preformed (if so, how long)? @ -No Were there social determinants of health that impacted care today? How? (Homelessness, low income, unemployed, alcoholism, drug addiction, transportation, low edu. Level, literacy, decrease access to med. care, penitentiary, rehab)? @ -No Was there de-escalation of care discussed even if they declined (Discuss DNR or withdrawal of care, Hospice)? DNR status @ -No What co-morbidities impacted this encounter? (DM, HTN, Smoking, COPD, CAD, Cancer, CVA, ARF, Chemo, Hep., AIDS, mental health diagnosis, sleep apnea, morbid obesity)? @ -[COPD Was patient admitted / discharged? Hospital course, mention meds given and route, prescriptions, significant lab abnormalities, going to OR and other pertinent info. @ -64 yo female presenting for evaluation of right upper chest discomfort. Patient well-appearing with stable vitals. She has good air entry without wheezing or respiratory distress. No hypoxia. EKG is sinus without ST segment elevation or definitive signs of ischemia. She has normal CBC, normal CMP, negative D-dimer, negative troponin. Her pain is atypical. We did discuss possibility of observation for further testing or discharge with close outpatient follow-up and return parameters. The patient prefers discharge with return parameters. Undiagnosed new problem with uncertain prognosis? @ -No Drug Therapy requiring intensive monitoring for toxicity (Heparin, Nitro, Insul in, Cardizem)? @ -No Were any procedures done? @ -No Diagnosis/symptom? @ -[Atypical chest pain Acute, or Chronic, or Acute on Chronic? @Acute Uncomplicated (without systemic symptoms) or Complicated (systemic symptoms)? @ -Default Side effects of treatment? @ -No Exacerbation, Progression, or Severe Exacerbation? @ -No Poses a threat to life or bodily function? How? (Chest pain, USA, CT, pneumonia, PE, COPD, DKA, ARF, appy, cholecystitis, CVA, Diverticulitis, Homicidal, Suicidal, threat to staff... and all critical care pts) @ -Low risk at this time - Lab Data Result diagrams: 10/20/24 11:27 10/20/24 11:27 Lab Results 10/20/24 10/20/24 10/20/24 Range/Units 11:27 11:27 11:27 WBC 6.77 (4.50-10.00) 10*3/uL RBC 4.70 (4.10-5.20) 10*6/uL Hgb 12.9 (12.0-15.0) g/dL Hct 39.1 (37.2-46.3) % MCV 83.2 (80.0-97.0) fL MCH 27.4 (27.0-32.0) pg MCHC 33.0 (32.0-37.0) g/dL Plt Count 277 (140-440) 10*3/uL MPV 8.8 L (9.5-12.2) fL Immature Gran % (Auto) 0.3 % Neutrophils % 65.3 % Lymphocytes % 25.8 % Monocytes % 7.4 % Eosinophils % 0.6 % Basophils % 0.6 % Immature Gran # 0.02 (0.00-0.04) 10*3/uL Neutrophils # 4.42 (1.80-7.70) 10*3/uL Lymphocytes # 1.75 (0.90-5.00) 10*3/uL Monocytes # 0.50 (0.20-1.00) 10*3/uL Eosinophils # 0.04 (0.04-0.35) 10*3/uL Basophils # 0.04 (0.00-0.10) 10*3/uL PT 10.7 (10.0-12.5) sec INR 1.0 (<1.2) APTT 26.6 (22.0-30.0) sec D-Dimer 0.38 (<0.60) mg/L FEU Sodium 135 L (137-145) mmol/L Potassium 3.8 (3.5-5.1) mmol/L Chloride 98 (98-107) mmol/L Carbon Dioxide 28 (22-30) mmol/L Anion Gap 9 mmol/L BUN 13 (7-17) mg/dL Creatinine 0.83 (0.52-1.04) mg/dL Est GFR (CKD-EPI)AfAm 87 (>60 ml/min/1.73 sqM) Est GFR (CKD-EPI)NonAf 75 (>60 ml/min/1.73 sqM) Glucose 133 H (74-99) mg/dL Calcium 9.2 (8.4-10.2) mg/dL Magnesium 1.9 (1.6-2.3) mg/dL Total Bilirubin 1.1 (0.2-1.3) mg/dL AST 27 (14-36) U/L ALT 25 (4-34) U/L Alkaline Phosphatase 67 (38-126) U/L Troponin I (0.000-0.034) ng/mL Total Protein 7.0 (6.3-8.2) g/dL Albumin 4.0 (3.5-5.0) g/dL 10/20/24 Range/Units 11:27 WBC (4.50-10.00) 10*3/uL RBC (4.10-5.20) 10*6/uL Hgb (12.0-15.0) g/dL Hct (37.2-46.3) % MCV (80.0-97.0) fL MCH (27.0-32.0) pg MCHC (32.0-37.0) g/dL Plt Count (140-440) 10*3/uL MPV (9.5-12.2) fL Immature Gran % (Auto) % Neutrophils % % Lymphocytes % % Monocytes % % Eosinophils % % Basophils % % Immature Gran # (0.00-0.04) 10*3/uL Neutrophils # (1.80-7.70) 10*3/uL Lymphocytes # (0.90-5.00) 10*3/uL Monocytes # (0.20-1.00) 10*3/uL Eosinophils # (0.04-0.35) 10*3/uL Basophils # (0.00-0.10) 10*3/uL PT (10.0-12.5) sec INR (<1.2) APTT (22.0-30.0) sec D-Dimer (<0.60) mg/L FEU Sodium (137-145) mmol/L Potassium (3.5-5.1) mmol/L Chloride (98-107) mmol/L Carbon Dioxide (22-30) mmol/L Anion Gap mmol/L BUN (7-17) mg/dL Creatinine (0.52-1.04) mg/dL Est GFR (CKD-EPI)AfAm (>60 ml/min/1.73 sqM) Est GFR (CKD-EPI)NonAf (>60 ml/min/1.73 sqM) Glucose (74-99) mg/dL Calcium (8.4-10.2) mg/dL Magnesium (1.6-2.3) mg/dL Total Bilirubin (0.2-1.3) mg/dL AST (14-36) U/L ALT (4-34) U/L Alkaline Phosphatase (38-126) U/L Troponin I <0.012 (0.000-0.034) ng/mL Total Protein (6.3-8.2) g/dL Albumin (3.5-5.0) g/dL Disposition Clinical Impression: Atypical chest pain, Chest pain Disposition: HOME SELF-CARE Condition: Fair Instructions (If sedation given, give patient instructions): Chest Pain (ED) Is patient prescribed a controlled substance at d/c from ED?: No Referrals: Ang Raymundo MD [Primary Care Provider] - 1-2 days Time of Disposition: 12:34
[2024-10-20 12:08] LABS: Partial Thromboplastin Time 26.6 sec (22.0-30.0); Prothrombin Time 10.7 sec (10.0-12.5)
[2024-10-20 13:26] VITALS: BP 134/76; PULSE 64; TEMP 98.3
== END 2024-10-20 13:30 | disposition home or self-care (01) ==
LOC: EC 11:01
DX: R07.89 Other chest pain (principal); J44.89 Other specified chronic obstructive pulmonary disease; Z87.891 Personal history of nicotine dependence; Z88.2 Allergy status to sulfonamides
CPT/HCPCS: 36415; 71046; 80053; 83735; 84484; 85025; 85379; 85610; 85730; 93005; 99285